=== PATIENT | female | born 1945 | race African-American/Black ===

== ENCOUNTER 2017-03-21 16:15 | Emergency (ER) | payer MEDICARE, MEDICAID ==
[~2017-03-21] VITALS: Ht 160 cm; Wt 143.3 kg
[2017-03-21 16:22] VITALS: BP 166/77
[2017-03-21] MEDS ORDERED: ALBUTEROL SULFATE 2.5 MG/3 ML NEBU. NEB ONE (16:45)
[2017-03-21] MEDS ORDERED: IPRATRPIUM/ALBUTEROL 0.5/2.5MG 3 ML NEBU. NEB ONE (16:45)
[2017-03-21] MEDS ORDERED: predniSONE 20 MG TABLET PO ONE (16:45)
--- NOTE | 2017-03-21 17:02 | PHYS DOC ---
Past Medical History Past Medical History: CHF, COPD Adult General Chief Complaint Chief Complaint: SHORTNESS OF BREATH HPI HPI Patient is a 72 year old female who presents with shortness of breath. She has known history of COPD and CHF, chronically wears 4 L nasal cannula oxygen. She states since yesterday she's had increasing shortness of breath, increased cough, no reported fevers, no chest pain. Patient went to urgent care and she was sent to our facility for further evaluation. Patient wears BiPAP at night, not currently taking antibiotics or steroids. Denies history of PE or DVT, no pain or increased swelling of her lower extremity's. Primary care physician is at [facility]. Review of Systems Review of Systems Constitutional: Denies fever or chills [] Eyes: Denies change in visual acuity, redness, or eye pain [] HENT: Denies nasal congestion or sore throat [] Respiratory: Per history of present illness Cardiovascular: Denies Chest pain, chronic lower extremity edema GI: Denies abdominal pain, nausea, vomiting, bloody stools or diarrhea [] : Denies dysuria or hematuria [] Musculoskeletal: Denies back pain or joint pain [] Integument: Denies rash or skin lesions [] Neurologic: Denies headache, focal weakness or sensory changes [] Current Medications Current Medications Current Medications Medications (Trade) Dose Ordered Sig/Richard Start Time Stop Time Status Last Admin Dose Admin Albuterol Sulfate (Ventolin Neb Soln) 7.5 mg 1X ONCE 03/21/17 16:45 03/21/17 16:46 DC 03/21/17 16:45 7.5 MG Albuterol/ Ipratropium (Duoneb) 3 ml 1X ONCE 03/21/17 16:45 03/21/17 16:46 DC 03/21/17 16:54 3 ML Prednisone (Prednisone) 50 mg 1X ONCE 03/21/17 16:45 03/21/17 16:46 DC 03/21/17 17:31 50 MG Promethazine HCl/ Codeine (Phenergan With Codeine) 10 ml 1X ONCE 03/21/17 18:45 03/21/17 18:52 DC Allergies Allergies Allergies Coded Allergies Type Severity Reaction Last Updated Verified ciprofloxacin Allergy Intermediate 03/21/17 Yes iodine Allergy Intermediate 03/21/17 Yes shellfish derived Allergy Intermediate 03/21/17 Yes Physical Exam Physical Exam Constitutional: Well developed, well nourished, moderate respiratory distress, obese, talks in 7 word sentences HENT: Normocephalic, atraumatic, bilateral external ears normal, oropharynx moist, no oral exudates, nose normal. [] Eyes: PERRLA, EOMI, conjunctiva normal, no discharge. [] Neck: Normal range of motion, no tenderness, supple, no stridor. [] Cardiovascular:Heart rate regular with regular rhythm, no murmur [] Lungs & Thorax: Bilateral breath bilaterally, poor air movement, faint exp wheeze with prolonged exp phase. Abdomen: Bowel sounds normal, soft, no tenderness, no masses, no pulsatile masses. [] Skin: Warm, dry, no erythema, no rash. [] Back: No tenderness, no CVA tenderness. [] Extremities: No tenderness, no cyanosis, no clubbing, ROM intact, bilateral lower extremity edema 2+ without ttp, pulses intact Neurologic: Alert and oriented X 3, normal motor function, normal sensory function, no focal deficits noted. [] Psychologic: Affect normal, judgement normal, mood normal. [] Current Patient Data Vital Signs Vital Signs Date Time Temp Pulse Resp B/P (MAP) Pulse Ox O2 Delivery O2 Flow Rate FiO2 03/21/17 17:15 Nasal Cannula 4.0 03/21/17 17:03 96 03/21/17 16:22 98.0 90 28 166/77 (106) 98.0 Lab Values Laboratory Tests Test 03/21/17 18:00 White Blood Count 9.4 x10^3/uL (4.0-11.0) Red Blood Count 5.79 x10^6/uL (3.50-5.40) H Hemoglobin 13.3 g/dL (12.0-15.5) Hematocrit 41.8 % (36.0-47.0) Mean Corpuscular Volume 72 fL (79-100) L Mean Corpuscular Hemoglobin 23 pg (25-35) L Mean Corpuscular Hemoglobin Concent 32 g/dL (31-37) Red Cell Distribution Width 16.8 % (11.5-14.5) H Platelet Count 232 x10^3/uL (140-400) Neutrophils (%) (Auto) 73 % (31-73) Lymphocytes (%) (Auto) 18 % (24-48) L Monocytes (%) (Auto) 8 % (0-9) Eosinophils (%) (Auto) 0 % (0-3) Basophils (%) (Auto) 1 % (0-3) Neutrophils # (Auto) 6.9 x10^3uL (1.8-7.7) Lymphocytes # (Auto) 1.7 x10^3/uL (1.0-4.8) Monocytes # (Auto) 0.7 x10^3/uL (0.0-1.1) Eosinophils # (Auto) 0.0 x10^3/uL (0.0-0.7) Basophils # (Auto) 0.1 x10^3/uL (0.0-0.2) Prothrombin Time 13.1 SEC (11.7-14.0) Prothrombin Time INR 1.1 (0.8-1.1) Sodium Level 145 mmol/L (136-145) Potassium Level 3.9 mmol/L (3.5-5.1) Chloride Level 105 mmol/L (98-107) Carbon Dioxide Level 30 mmol/L (21-32) Anion Gap 10 (6-14) Blood Urea Nitrogen 18 mg/dL (7-20) Creatinine 1.2 mg/dL (0.6-1.0) H Estimated GFR (Cockcroft-Gault) 53.7 BUN/Creatinine Ratio 15 (6-20) Glucose Level 150 mg/dL (70-99) H Lactic Acid Level 1.9 mmol/L (0.4-2.0) Calcium Level 8.9 mg/dL (8.5-10.1) Magnesium Level 2.2 mg/dL (1.8-2.4) Total Bilirubin 0.3 mg/dL (0.2-1.0) Aspartate Amino Transferase (AST) 15 U/L (15-37) Alanine Aminotransferase (ALT) 20 U/L (14-59) Alkaline Phosphatase 79 U/L (46-116) Troponin I Quantitative < 0.017 ng/mL (0.000-0.055) NW-Pca-Q-Type Natriuretic Peptide 109 pg/mL (0-124) Total Protein 7.6 g/dL (6.4-8.2) Albumin 4.1 g/dL (3.4-5.0) Albumin/Globulin Ratio 1.2 (1.0-1.7) Laboratory Tests 03/21/17 18:00 Laboratory Tests 03/21/17 18:00 EKG EKG 83 bpm, sinus with normal axis, QTC of 494, no appreciable ST elevation, biphasic T waves, interpreted by me [] Radiology/Procedures Radiology/Procedures CXR: faint patchy lower lobe infiltrates consistent with pulmonary edema vs atelectasis, blunted bilateral costophrenic angles, no acute bony abnormality, luis miguel-B line R lobe , interpreted by me.[] Course & Med Decision Making Course & Med Decision Making Pertinent Labs and Imaging studies reviewed. (See chart for details) Pt given duoneb and 3 albuterol nebs, steroids. CXR and labs. Patient reports feeling significantly better after nebulizers. Patient is requesting to go home, she wants to get an ENT appointment tomorrow. She states she feels back to her baseline and feels that she can return to the ER if she has worsening symptoms. I counseled patient on the risk of leaving, she will follow-up with her doctor. Pt discharged with 4 more days of steroids. Pt also given cough meds Dragon Disclaimer Dragon Disclaimer This electronic medical record was generated, in whole or in part, using a voice recognition dictation system. Departure Departure Impression: Primary Impression: COPD (chronic obstructive pulmonary disease) Disposition: 01 HOME, SELF-CARE Condition: IMPROVED Scripts Codeine Phosphate/Guaifenesin (Guaifen-Codeine 200-20 mg/10Ml) 10 Ml Liquid 10 ML PO PRN Q6HRS Y for COUGH, #180 LIQUID Prov: SHARA SELBY MD 03/21/17 Prednisone (PREDNISONE) 50 Mg Tablet 1 TAB PO DAILY, #4 TAB starting tomorrow Prov: SHARA SELBY MD 03/21/17 SHARA SELBY MD Mar 21, 2017 17:02
[2017-03-21 18:15] LABS: BASO # 0.1 x10^3/uL (0.0-0.2); BASO % 1 % (0-3); EOS % 0 % (0-3); HEMATOCRIT 41.8 % (36.0-47.0); HEMOGLOBIN 13.3 g/dL (12.0-15.5); LYMPH # 1.7 x10^3/uL (1.0-4.8); LYMPH % 18 % (24-48); MEAN CORPUSCULAR HEMOGLOBIN 23 pg (25-35); MEAN CORPUSCULAR HGB CONC 32 g/dL (31-37); MEAN CORPUSCULAR VOLUME 72 fL (79-100); MONO % 8 % (0-9); NEUT % 73 % (31-73); PLATELET COUNT 232 x10^3/uL (140-400); RED BLOOD COUNT 5.79 x10^6/uL (3.50-5.40); RED CELL DISTRIBUTION WIDTH 16.8 % (11.5-14.5); WHITE BLOOD COUNT 9.4 x10^3/uL (4.0-11.0)
[2017-03-21 18:23] LABS: INR 1.1 (0.8-1.1); PROTHROMBIN TIME PATIENT 13.1 SEC (11.7-14.0)
[2017-03-21 18:25] LABS: CALCIUM 8.9 mg/dL (8.5-10.1); CREATININE 1.2 mg/dL (0.6-1.0); GFR 53.7; POTASSIUM 3.9 mmol/L (3.5-5.1)
[2017-03-21 18:30] LABS: ALBUMIN 4.1 g/dL (3.4-5.0); ALBUMIN/GLOBULIN RATIO 1.2 (1.0-1.7); MAGNESIUM 2.2 mg/dL (1.8-2.4); TOTAL BILIRUBIN 0.3 mg/dL (0.2-1.0); TOTAL PROTEIN 7.6 g/dL (6.4-8.2)
[2017-03-21] MEDS ORDERED: PROMETH/CODEINE 6.25/10MG 5 ML SYRUP. PO ONE (18:45)
[2017-03-21] MEDS ORDERED: CODE10LI PO (19:04)
[2017-03-21] MEDS ORDERED: PRED50TA PO (19:04)
--- NOTE | 2017-03-22 06:06 | EKG ---
[facility] [address] [place] [address] Test Date: 2017-03-21 Test Time: 16:22:51 Pat Name: CINDY GUTIERREZ Department: Room: Gender: F Metal [employer]: : 1945 Requested By: SHARA SELBY Order Number: [id number] Reading MD: Luis Enrique Lopez Measurements Intervals [place] Rate: 83 P: -90 OK: 142 QRS: -37 QRSD: 78 T: 56 QT: 420 QTc: 494 Interpretive Statements SINUS RHYTHM POSSIBLE SEPTAL INFARCT NON-SPECIFIC ST/T CHANGES BASELINE ARTIFACT Electronically Signed On 03-23-2017 11:16:18 CDT by Luis Enrique Lopez
--- NOTE | 2017-03-22 08:16 | RAD ---
Exam performed: One view chest. History: Shortness of air and cough today, history of hypertension, COPD and diabetes with asthma. Date of service: 03/21/17. Comparison: 04/01/06. Single AP upright portable view chest findings: Mild cardiomegaly with central vascular congestion. Prominent interstitial markings are seen in both lungs some of which appear chronic basis. No focal infiltrates, effusion or pneumothorax seen. Bones are normal. Impression: Mild cardiomegaly and central vascular congestion.
== END 2017-03-21 19:30 | disposition home or self-care (01) ==
LOC: ER 16:15
DX: J44.9 Chronic obstructive pulmonary disease, unspecified (principal); I11.0 Hypertensive heart disease with heart failure; I50.9 Heart failure, unspecified; E11.9 Type 2 diabetes mellitus without complications; Z88.1 Allergy status to other antibiotic agents; Z91.041 Radiographic dye allergy status; Z91.013 Allergy to seafood
CPT/HCPCS: 36415; 71010; 80053; 83605; 83735; 83880; 84484; 85025; 85610; 93005; 94250; 94640; 99285; J7512; J7613; J7620